=== PATIENT | female | born 1950 | race Caucasian/White ===

== ENCOUNTER 2018-01-22 08:17 | Outpatient (CLI) | payer MEDICARE, BC | END 2018-01-22 08:18 | disposition home or self-care (01) | LOC: BICMAMMO 08:17 | PROVIDERS: ATTEND Family Medicine | DX: Z12.31 Encounter for screening mammogram for malignant neoplasm of breast (principal); Z78.0 Asymptomatic menopausal state; M85.852 Other specified disorders of bone density and structure, left thigh; Z80.3 Family history of malignant neoplasm of breast | CPT/HCPCS: 77063; 77067; 77080 ==

== ENCOUNTER 2018-10-24 10:10 | Outpatient (CLI) | payer MEDICARE, BC ==
--- NOTE | 2018-10-24 10:31 | RAD ---
Lumbar spine: 2 views INDICATIONS: Low back pain COMPARISON: Lateral views 09/25/2018 FINDINGS: An AP projection there is a scoliotic curvature with convexity to the right measured at 26 degrees. Moderate degenerative change with osteophytes. Disc space narrowing. Facet hypertrophy. Posterior ali gnment is preserved in the lateral view. IMPRESSION: Moderate degenerative change with scoliotic curvature to the right.
== END 2018-10-24 10:11 | disposition home or self-care (01) ==
LOC: BICRAD 10:10
PROVIDERS: ATTEND Neurological Surgery
DX: M54.5 Low back pain (principal); M47.816 Spondylosis without myelopathy or radiculopathy, lumbar region; M41.9 Scoliosis, unspecified
CPT/HCPCS: 36415; 72100; 80053; 80061

== ENCOUNTER 2019-04-09 09:32 | Outpatient (CLI) | payer MEDICARE, BC ==
--- NOTE | 2019-04-09 11:10 | MMO ---
Bilateral MAMMO Bilat Screen [facility]. CLINICAL HISTORY: Patient is 68 years old and is seen for screening. The patient has the following family history of breast cancer: paternal aunt. The patient has no personal history of cancer. VIEWS: The views performed were: bilateral craniocaudal with tomosynthesis and bilateral mediolateral oblique with tomosynthesis. FILMS COMPARED: The present examination has been compared to prior imaging studies performed at [facility] on 10/23/2014, 10/26/2015, 12/05/2016 and 01/22/2018. This study has been interpreted with the assistance of computer-aided detection. MAMMOGRAM FINDINGS: The breasts are almost entirely fat. There are no suspicious masses, suspicious calcifications, or new areas of architectural distortion. IMPRESSION: THERE IS NO MAMMOGRAPHIC EVIDENCE OF MALIGNANCY. A ROUTINE FOLLOW-UP MAMMOGRAM IN 1 YEAR IS RECOMMENDED. THE RESULTS OF THIS EXAM WERE SENT TO THE PATIENT. ACR BI-RADS Category 1 - Negative MAMMOGRAPHY NOTE: 1. A negative mammogram report should not delay a biopsy if a dominant of clinically suspicious mass is present. 2. Approximately 10% to 15% of breast cancers are not detected by mammography. 3. Adenosis and dense breasts may obscure an underlying neoplasm. Reported by: AVI HOWELL MD Electonically Signed: [id number]
== END 2019-04-09 09:33 | disposition home or self-care (01) ==
LOC: BICMAMMO 09:32
PROVIDERS: ATTEND Family Medicine
DX: Z12.31 Encounter for screening mammogram for malignant neoplasm of breast (principal); Z80.3 Family history of malignant neoplasm of breast
CPT/HCPCS: 77063; 77067

== ENCOUNTER 2019-10-29 12:30 | Outpatient (CLI) | payer MEDICARE, BC ==
--- NOTE | 2019-10-29 13:04 | RAD ---
Left knee 4 views HISTORY: Fall. Injury. FINDINGS: Joint spaces preserved. No acute fracture, dislocation, or fluid distention of the suprapatellar burs a. IMPRESSION : No abnormalities are demonstrated.
== END 2019-10-29 12:31 | disposition home or self-care (01) ==
LOC: BICRAD 12:30
PROVIDERS: ATTEND Family Medicine
DX: S80.02XA Contusion of left knee, initial encounter (principal)

== ENCOUNTER 2020-04-13 09:32 | Outpatient (CLI) | payer MEDICARE, BC ==
--- NOTE | 2020-04-13 10:04 | MMO ---
Bilateral MAMMO Bilat Screen [facility]. CLINICAL HISTORY: Patient is 69 years old and is seen for screening. The patient has the following family history of breast cancer: paternal aunt. The patient has no personal history of cancer. VIEWS: The views performed were: bilateral craniocaudal with tomosynthesis and bilateral mediolateral oblique with tomosynthesis. FILMS COMPARED: The present examination has been compared to prior imaging studies performed at [facility] on 10/26/2015, 12/05/2016, 01/22/2018 and 04/09/2019. This study has been interpreted with the assistance of computer-aided detection. MAMMOGRAM FINDINGS: The breasts are almost entirely fat. There are no suspicious masses, suspicious calcifications, or new areas of architectural distortion. IMPRESSION: THERE IS NO MAMMOGRAPHIC EVIDENCE OF MALIGNANCY. A ROUTINE FOLLOW-UP MAMMOGRAM IN 1 YEAR IS RECOMMENDED. THE RESULTS OF THIS EXAM WERE SENT TO THE PATIENT. ACR BI-RADS Category 1 - Negative MAMMOGRAPHY NOTE: 1. A negative mammogram report should not delay a biopsy if a dominant of clinically suspicious mass is present. 2. Approximately 10% to 15% of breast cancers are not detected by mammography. 3. Adenosis and dense breasts may obscure an underlying neoplasm. Reported by: DANNA GALINDO MD Electonically Signed: [id number]
--- NOTE | 2020-04-13 11:43 | BD ---
DEXA BONE DENSITY STUDY: Date: 04/13/2020 HISTORY: Postmenopausal. FINDINGS: Lumbar Spine: BMD (g/cm2) L1 0.839 T-Score: -1.4 L2 1.155 T-Score: +1.2 L3 1.082 T-Score: +0.0 L4 1.043 T-Score: -0.2 Total 1.031 T-Score: -0.1 Left Femoral Neck: 0.616 T-Score: -2.1 Total Femur: 0.786 T-Score: -2.3 IMPRESSION: 1. Osteopenia of the left femoral neck. Normal bone mineral density of the lumbar spine. 2. The 10 year fracture risk for a major osteoporotic fracture is 12% and for a hip fracture is 2.4% . These fracture probabilities are calculated for an untreated patient. POS: DESIREE
== END 2020-04-13 09:33 | disposition home or self-care (01) ==
LOC: BICMAMMO 09:32
PROVIDERS: ATTEND Family Medicine
DX: Z12.31 Encounter for screening mammogram for malignant neoplasm of breast (principal); Z13.820 Encounter for screening for osteoporosis; M85.852 Other specified disorders of bone density and structure, left thigh; Z78.0 Asymptomatic menopausal state; Z80.3 Family history of malignant neoplasm of breast
CPT/HCPCS: 77063; 77067; 77080

== ENCOUNTER 2020-08-06 04:44 | Observation (INO) | payer MEDICARE, BC ==
[2020-08-06 06:03] LABS: #Lymphocytes 0.8 thou/uL (1.20-3.40); #Monocytes 0.4 thou/uL (0.11-0.59); %Basophils 0.5 % (0.0-1.0); %Eosinophils 0.5 % (0.0-10.0); %Lymphocytes 9.4 % (21.0-51.0); %Monocytes 4.3 % (0.0-10.0); %Neutrophils 85.3 % (42.0-75.0); Hemoglobin 13.6 g/dL (12.0-16.0); Mean Corpuscular HGB CONC 33.4 g/dL (32.0-36.0); Mean Corpuscular Hemoglobin 31.7 pg (27.0-31.0); Mean Corpuscular Volume 95.2 fL (78.0-98.0); Mean Platelet Volume 6.5 fL (7.4-10.4); Platelet Count 367 thou/uL (130-400); RBC Distribution Width 11.8 % (11.5-14.5); Red Blood Cell (RBC) Count 4.27 mill/uL (4.20-5.40); White Blood Cell (WBC) Count 8.2 thou/uL (4.8-10.8)
[2020-08-06 06:20] LABS: ALT (SGPT) 14 U/L (8-55); AST (SGOT) 18 U/L (5-34); Albumin 3.9 g/dL (3.4-4.8); Alkaline Phosphatase 105 U/L (40-110); Anion Gap 13 mmol/L (10-20); BUN (Urea Nitrogen) 22 mg/dL (9.8-20.1); Bilirubin, Total 0.4 mg/dL (0.2-1.2); Calc. Creatinine Clearance 0 mL/min (70-130); Calcium 8.9 mg/dL (7.8-10.44); Carbon Dioxide 23 mmol/L (23-31); Chloride 103 mmol/L (98-107); Glucose 118 mg/dL (83-110); Potassium 4.4 mmol/L (3.5-5.1); Protein, Total 6.9 g/dL (5.8-8.1); Sodium 135 mmol/L (136-145)
[2020-08-06] MEDS ORDERED: Ondansetron PF 4 MG/2 ML Vial ONE (06:51)
--- NOTE | 2020-08-06 07:43 | CT ---
CT arteriogram chest with IV contrast and 3-D imaging HISTORY: Syncope. Dyspnea. Prior pulmonary emboli. COMPARISON: 01/15/2019. FINDINGS: There is good contrast opacification pulmonary arteries and thoracic aorta. 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 A 0.3 cm nonspecific density associated with the posterior margin of the left pleural fissure at the superior segment left lower lobe is stable. No pneumothorax or pleural fluid. No mediastinal adenopathy. Old right anterior rib fractures. A 0.5 cm cyst within the medial segment left liver lobe is stable. 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 IMPRESSION : No evidence of pulmonary embolus. No acute abnormalities are demonstrated.
[2020-08-06 07:59] LABS: Bacteria/HPF None Seen HPF (None Seen); Bilirubin Negative (Negative); Blood, Urine Negative (Negative); Clarity Clear (Clear); Glucose, Urine (Dipstick) Normal (Negative); Ketone, Urine Negative (Negative); Leukocyte 250 Leu/uL (Negative); Nitrite Negative (Negative); Protein, Urine (Dipstick) Negative (Neg-Trace); Specific Gravity, Urine 1.037 (1.002-1.036); Urobilinogen Normal mg/dL (Less than 2); pH, Urine 7.5 (5.0-9.0)
--- NOTE | 2020-08-06 08:04 | CT ---
Final report by Dr. Eng Emergency after-hours study CT BRAIN NONCONTRAST: DATE: 08/06/2020 HISTORY: 70-year-old female with dizziness FINDINGS: There is no evidence of acute intra-axial or extra-axial hemorrhage. There is no midline shift or any other mass effect. There is no extra-axial fluid collection. There is no evidence of obstructive hydrocephalus. Calvarium is intact. In the right side of the craniocervical junction there is a soft tissue density mass which is slightly hyperdense relative to brain parenchyma, at the right side of the foramen magnum, measuring approximately 1.3 x 0.9 cm, indenting the right side of the junction be tween the medulla and spinal cord. There is a punctate calcification within it. Slightly caudally, at the C1 level, there is another component of the mass that is approximately 1.2 x 1.3 cm. In retros pect, this was probably present on the prior MRI of the brain of 05/25/2018, but it had the appearance of CSF flow artifact, because it did not enhance. It does not appear to be an aneurysm of the right PICA based on the T2-weighted images. Etiology is uncertain. In the upper anterior right parietal bone, there is a 1 cm osteolytic lesion which was present on that previous MRI, and appears to be benign, unchanged. Agree with preliminary report by direct radiology. IMPRESSION: No acute intracranial findings. 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 Etiology unknown. Recommend follow-up with MRI of cervical spine with and without contrast (note to sterile processing technologist: Extend all axial images up to at least mid radha level).
--- NOTE | 2020-08-06 08:05 | RAD ---
EXAM: Portable chest PROVIDED CLINICAL HISTORY: Dizziness COMPARISON: 01/15/2019 FINDINGS: Cardiac and mediastinal silhouette is within normal limits. No focal consolidation, pleural fluid or pneumothorax evident. IMPRESSION: No evidence for an acute cardiopulmonary process.
[2020-08-06] MEDS ORDERED: Ondansetron PF 4 MG/2 ML Vial IVP PRN (09:00)
--- NOTE | 2020-08-06 09:14 | PDOC.HHP ---
Hospitalist JOANA Passed out History of Present Illness: Patient is 70-year-old female with PMH of HLD and history of provoked bilateral PE (after back surgery in 2019) who presents to the ED with CC of syncope. Patient states she got her second dose of Covid-19 vaccine yesterday, she was doing well afterwards except mild ache on her left arm where she got the vaccine, this resolved with Tylenol. When she woke up this morning around 4:00 AM she was very sweaty, she got up and went to the bathroom sat to urinate, then she does not remember what happened afterwards. She states she must have felt dizzy/lightheaded prior to her syncope, however she does not remember. Per report, found her on the toilet, unresponsive and was unconscious for about 3 minutes, and was confused for several minutes afterwards. No seizure-like activities were reported. She had mild BALLARD yesterday, otherwise denies fever, chills, change in vision, chest pain, SOB, N/V, or diarrhea. Allergies/Adverse Reactions: Allergy/AdvReac Type Severity Reaction Status Date / Time codeine Allergy Verified 08/04/16 14:42 penicillin G Allergy Verified 08/04/16 14:42 Sulfa (Sulfonamide Allergy Verified 08/04/16 14:42 Antibiotics) Home Medications: Medication Instructions Recorded Confirmed Type Atorvastatin Calcium 20 mg PO DAILY 08/04/16 08/06/20 History Calcium Carbonate/Vitamin D3 1 each PO DAILY 08/04/16 08/06/20 History [Calcium 500-Vit D3 200 Tablet] Multivitamin [Multivitamins] 1 tablet PO DAILY 08/04/16 08/06/20 History Restasis [Restasis Ophth Drops] 2 drop EA EYE BID 08/04/16 08/06/20 History Dextran 70/Hypromellose 1 - 2 drop EA EYE ASDIR PRN 01/16/19 08/06/20 History [Artificial Tears Eye Drops] Acetaminophen [Tylenol Regular 650 mg PO Q4H PRN tab 01/18/19 08/06/20 Rx Strength] Acyclovir 400 mg PO DAILY 08/06/20 08/06/20 History DULoxetine [Cymbalta] 60 mg PO DAILY 08/06/20 08/06/20 History Gabapentin 400 mg PO HS 08/06/20 08/06/20 History Meloxicam 15 mg PO DAILY 08/06/20 08/06/20 History SUMAtriptan Succinate [Sumatriptan 50 mg PO DAILY PRN 08/06/20 08/06/20 History Succinate] diphenhydrAMINE [Benadryl] 25 mg PO HS 08/06/20 08/06/20 History Past History: PMHx: HLD and history of provoked bilateral PE (after back surgery in 2019) PShx: L4-L5 and L5-S1 surgery, tubal ligation, knee arthroscopy Fhx: Father: CVA Mother: Cancer Social Hx: drinks alcohol occasionally. Never smoker. Denies drug use. Hospitalist HPI ROS Constitutional: denies: fever, chills Eyes: denies: vision change ENT: denies: throat pain Respiratory: denies: shortness of breath Cardiovascular: denies: chest pain Gastrointestinal: denies: nausea, vomiting, abdominal pain Genitourinary: reports: dysuria. denies: frequency Musculoskeletal: denies: arm pain Skin: denies: rash Other: Negative for BALLARD Hospitalist Exam General Appearance: NAD, awake alert Eye: PERRL ENT: moist mucosa Neck: supple, no JVD Heart: RRR, no murmur Respiratory: CTAB, no wheezes, no tachypnea Gastrointestinal: soft, non-tender, non-distended, normal bowel sounds Extremities: no edema Neurological: cranial nerve grossly intact, normal sensation to touch, no weakness Musculoskeletal: normal strength Psychiatric: A&O x 3 Hospitalist Results Result Diagrams: 08/07/20 07:26 08/07/20 07:26 Lab results: Laboratory Last Values WBC 8.2 thou/uL (4.8-10.8) 08/06/20 05:50 RBC 4.27 mill/uL (4.20-5.40) 08/06/20 05:50 Hgb 13.6 g/dL (12.0-16.0) 08/06/20 05:50 Hct 40.7 % (36.0-47.0) 08/06/20 05:50 MCV 95.2 fL (78.0-98.0) 08/06/20 05:50 MCH 31.7 pg (27.0-31.0) H 08/06/20 05:50 MCHC 33.4 g/dL (32.0-36.0) 08/06/20 05:50 RDW 11.8 % (11.5-14.5) 08/06/20 05:50 Plt Count 367 thou/uL (130-400) 08/06/20 05:50 MPV 6.5 fL (7.4-10.4) L 08/06/20 05:50 Neutrophils % 85.3 % (42.0-75.0) H 08/06/20 05:50 Lymphocytes % 9.4 % (21.0-51.0) L 08/06/20 05:50 Monocytes % 4.3 % (0.0-10.0) 08/06/20 05:50 Eosinophils % 0.5 % (0.0-10.0) 08/06/20 05:50 Basophils % 0.5 % (0.0-1.0) 08/06/20 05:50 Neutrophils # 7.0 thou/uL (1.40-6.50) H 08/06/20 05:50 Lymphocytes # 0.8 thou/uL (1.20-3.40) L 08/06/20 05:50 Monocytes # 0.4 thou/uL (0.11-0.59) 08/06/20 05:50 Eosinophils # 0.0 thou/uL (0.0-0.7) 08/06/20 05:50 Basophils # 0.0 thou/uL (0.0-0.2) 08/06/20 05:50 Sodium 135 mmol/L (136-145) L 08/06/20 05:50 Potassium 4.4 mmol/L (3.5-5.1) 08/06/20 05:50 Chloride 103 mmol/L (98-107) 08/06/20 05:50 Carbon Dioxide 23 mmol/L (23-31) 08/06/20 05:50 Anion Gap 13 mmol/L (10-20) 08/06/20 05:50 BUN 22 mg/dL (9.8-20.1) H 08/06/20 05:50 Creatinine 1.04 mg/dL (0.6-1.1) 08/06/20 05:50 Estimated GFR (MDRD) 52 08/06/20 05:50 Glucose 118 mg/dL (83-110) H 08/06/20 05:50 Calcium 8.9 mg/dL (7.8-10.44) 08/06/20 05:50 Total Bilirubin 0.4 mg/dL (0.2-1.2) 08/06/20 05:50 AST 18 U/L (5-34) 08/06/20 05:50 ALT 14 U/L (8-55) 08/06/20 05:50 Alkaline Phosphatase 105 U/L (40-110) 08/06/20 05:50 Troponin I Less than 0.010 ng/mL (< 0.028) 08/06/20 05:50 Serum Total Protein 6.9 g/dL (5.8-8.1) 08/06/20 05:50 Albumin 3.9 g/dL (3.4-4.8) 08/06/20 05:50 Globulin 3.0 g/dL (2.4-3.5) 08/06/20 05:50 Albumin/Globulin Ratio 1.3 g/dL (1.2-2.2) 08/06/20 05:50 Urine Color Light-Yellow (Yellow) 08/06/20 07:05 Urine Clarity Clear (Clear) 08/06/20 07:05 Urine pH 7.5 (5.0-9.0) 08/06/20 07:05 Ur Specific [place] 1.037 (1.002-1.036) H 08/06/20 07:05 Urine Protein Negative mg/dL (Neg-Trace) 08/06/20 07:05 Urine Glucose (UA) Normal mg/dL (Negative) 08/06/20 07:05 Urine Ketones Negative mg/dL (Negative) 08/06/20 07:05 Urine Blood Negative (Negative) 08/06/20 07:05 Urine Nitrite Negative (Negative) 08/06/20 07:05 Urine Bilirubin Negative (Negative) 08/06/20 07:05 Urine Urobilinogen Normal mg/dL (Less than 2) 08/06/20 07:05 Ur Leukocyte Esterase 250 Simeon/uL (Negative) A 08/06/20 07:05 Urine RBC 4-6 HPF (0-3) A 08/06/20 07:05 Urine WBC 4-6 HPF (0-3) A 08/06/20 07:05 Ur Squamous Epith Cells 4-6 HPF (0-3) A 08/06/20 07:05 Urine Bacteria None Seen HPF (None Seen) 08/06/20 07:05 Hyaline Casts 0-3 LPF (0-3) 08/06/20 07:05 CT scan - chest Additional Comments: IMPRESSION: No acute intracranial findings. 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 Etiology unknown. Recommend follow-up with MRI of cervical spine with and without contrast (note to systems technologist: Extend all axial images up to at least mid radha level). Hospitalist H&P A/P (1) Syncope Code(s): R55 - SYNCOPE AND COLLAPSE Status: Acute Assessment and Plan: Likely from orthostatic hypotension from dehydration. Initial BP in the ED, 112/58, later 98/45. Lab showed elevated BUN, UA showed elevated specific gravity. EKG showed NSR. CTA chest showed no PE. CT head showed exramedullary intradural mass within the right side of the spinal canal and foramen mangnum, f/u MRI of the cervical spine was recommended, it showed no acute intracranial abnormalities. Plan: -Telemetry -Orthostatic vitals -Echo -MRI of Cervical spin w/wo contrast -IV fluid (2) HLD (hyperlipidemia) Code(s): E78.5 - HYPERLIPIDEMIA, UNSPECIFIED Status: Chronic Assessment and Plan: Plan: -cont home med
[2020-08-06 11:09] VITALS: BMI 29.7
[2020-08-06] MEDS: Sodium Chloride 0.9% 1,000 ML IV SCH ×2 (12:03→23:05)
[2020-08-06] MEDS: Acetaminophen 325 MG TAB PO PRN ×2 (12:05→20:10)
[2020-08-06] MEDS ORDERED: Iopamidol 370 76% 100 ML VIAL ONE (13:47)
--- NOTE | 2020-08-06 13:56 | MRI ---
MRI cervical spine with and without contrast: 08/06/2020 HISTORY: 70-year-old female with mass found in upper spinal canal and posterior fossa on CT. COMPARISON: Brain MRI of 05/25/2018. No prior MRI of cervical spine. FINDINGS: There is an intradural, extra medullary mass in the right side of the foramen magnum and upper cervic al spinal canal, measuring approximately 3.5 cm craniocaudal. Oblique short axis measurements are approximately 1.3 x 0.7 cm. Superior edges approximately 1.2 cm superior to the foramen magnum. Infer ior edge is at the level of the base of the odontoid process. It is isointense relative to brain parenchyma on T1 WI, does not enhance, and almost isointense to CSF on T2 WI, such that it is highly inconspicuous. Were it not for the intermediate density on the noncontrast CT, this could easily be overlooked on MRI. The prior brain MRI did not include the most inferior portion of the mass. It is b est visualized on the prior FLAIR sequence of the brain MRI rather than on any of the current cervical spine MRI images. It was probably dismissed as CSF flow artifact on that prior brain MRI, wh ich would've been a very reasonable assumption. Based on the apples to oranges comparison between the axial current images and those of the previous MRI, this probably has not significant changed. Th e right vertebral artery travels along its outer surface. It is not narrowed. The mass is not an aneurysm of the right PICA. There was no restricted diffusion on DWI on the prior MRI, and therefore it is not an epidermoid. It does not appear to be a benign or malignant neoplasm because it does not enhance. It mildly chronically displaces the medulla and upper cervical spinal cord. Increased si gnal intensity on FLAIR, and isodensity relative to adjacent spinal cord and brain on CT makes this is consistent with arachnoid cyst. There is reversal of curvature. High-grade disc space narrowing at C4-5 and C5-6. No high-grade centr al spinal canal stenosis at any level. Uncinate process osteophytes encroach upon bilateral neural foramina at C4-5 and C5-6. Neural foraminal stenosis is moderate to severe on the left at C4-5, sever e on the left at C5-6, and moderate on the right at C5-6. Vertebral body heights are maintained. Bone marrow signal is normal. Cervical spinal cord is normal in size and signal with no syrinx or abn ormal enhancement. No enhancing masses in the neural foramina or perivertebral spaces. Multilevel mild to moderate facet DJD bilaterally. IMPRESSION: 1.) Right-sided extra medullary, intradural nonenhancing mass in the right side of the upper cervical spinal canal, protruding slightly superior to the foramen magnum. Etiology unknown. Apparently benign. 2) cervical spondylosis with high-grade left-sided neural foraminal stenosis at C4-5 and C5-6.
[2020-08-06] MEDS ORDERED: Magnevist 469MG/ML 20 ML VIAL ONE (14:05)
[2020-08-06] MEDS ORDERED: Atorvastatin Calcium 20 MG TAB PO SCH (21:00)
[2020-08-06 22:38] LABS: SARS-CoV-2 PCR by NAA Not Detected (NotDetected)
[2020-08-07 07:54] LABS: #Eosinphils 0.3 thou/uL (0.0-0.7); #Lymphocytes 1.6 thou/uL (1.20-3.40); #Monocytes 0.6 thou/uL (0.11-0.59); #Neutrophils 2.2 thou/uL (1.40-6.50); %Basophils 0.7 % (0.0-1.0); %Eosinophils 5.8 % (0.0-10.0); %Monocytes 13.4 % (0.0-10.0); %Neutrophils 47.2 % (42.0-75.0); Hemoglobin 13.7 g/dL (12.0-16.0); Mean Corpuscular HGB CONC 33.5 g/dL (32.0-36.0); Mean Corpuscular Hemoglobin 32.7 pg (27.0-31.0); Mean Corpuscular Volume 97.6 fL (78.0-98.0); Mean Platelet Volume 6.8 fL (7.4-10.4); Platelet Count 367 thou/uL (130-400); RBC Distribution Width 11.8 % (11.5-14.5); Red Blood Cell (RBC) Count 4.21 mill/uL (4.20-5.40); White Blood Cell (WBC) Count 4.7 thou/uL (4.8-10.8)
[2020-08-07 08:12] LABS: Anion Gap 13 mmol/L (10-20); BUN (Urea Nitrogen) 14 mg/dL (9.8-20.1); Calc. Creatinine Clearance 79 mL/min (70-130); Carbon Dioxide 26 mmol/L (23-31); Chloride 107 mmol/L (98-107); Glucose 104 mg/dL (83-110); Potassium 4.5 mmol/L (3.5-5.1); Sodium 141 mmol/L (136-145)
[2020-08-07] MEDS: Acetaminophen 325 MG TAB PO PRN (11:08)
[2020-08-07] MEDS: Sodium Chloride 0.9% 1,000 ML IV SCH (14:26)
[2020-08-07 16:30] VITALS: BP 143/67; TEMP 97.9
--- NOTE | 2020-08-07 17:06 | PDOC.DS.DS ---
Provider Date of Admission: 08/06/20 08:07 Date of Discharge: 08/07/20 Admitting Provider: Zee Nava MD Consultations: Cardiology Primary Care Physician: Kalyan Culver, DO Course Hospital Course: Patient is 70-year-old female with PMH of HLD and history of provoked bilateral PE (after back surgery in 2019) who presents to the ED with CC of syncope. Patient took her second dose of COVID-19 vaccine a day prior to her admission, and she was sweaty the night before. found her unresponsive sitting on a toilet. Work up showed positive orthostatic vitals. Labs showed elevated BUN, UA showed elevated specific gravity. Initial EKG showed NSR. CTA chest showed no PE. CT head showed extramedullary intradural mass within the right side of the spinal canal and foramina magnum. F/u MRI cervical spine w contrast was recommended and this showed right-sided extra medullary, intradural nonenhancing mass in the right side of the upper cervical spinal canal, protruding slightly superior to the foramen magnum, etiology unknown but appears benign. Patient was informed to follow-up with neurosurgery outpatient. Echo showed EF: 60-65%. Tele overnight showed 1st degree AV block with HR in the 70-80's. Cardiology was consulted and states patient is okay to be discharged. Her syncope is likely from orthosatic hypotension, which improved with IV hydration. 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 Resuscitation Status: 08/06/20 09:00 Resuscitation Status Routine Resuscitation Status: FULL: Full Resuscitation Discussed with: patient Lab Results: 08/07/20 07:26 08/07/20 07:26 Abnormal Lab Results - Last 48 hrs 08/06/20 05:50: Sodium 135 L, BUN 22 H 08/06/20 05:50: MCH 31.7 H, MPV 6.5 L, Neutrophils % 85.3 H, Lymphocytes % 9.4 L, Neutrophils # 7.0 H, Lymphocytes # 0.8 L 08/06/20 07:05: Ur Specific [place] 1.037 H, Ur Leukocyte Esterase 250 A, Urine RBC 4-6 A, Urine WBC 4-6 A, Ur Squamous Epith Cells 4-6 A 08/07/20 07:26: WBC 4.7 L, MCH 32.7 H, MPV 6.8 L, Monocytes % 13.4 H, Monocytes # 0.6 H Vitals: Vital Signs (12 hours) Temp Pulse Resp BP BP BP BP 08/07/20 16:21 143/67 H 08/07/20 16:18 143/57 H 08/07/20 16:15 97.9 F 141/60 H 08/07/20 12:00 98.9 F 83 16 120/57 L 08/07/20 08:21 104/48 L 08/07/20 08:18 86 127/67 08/07/20 08:15 81 85/48 L 08/07/20 07:00 98.1 F 72 18 128/56 L 08/07/20 04:55 Pulse Ox 08/07/20 16:21 08/07/20 16:18 08/07/20 16:15 98 08/07/20 12:00 96 08/07/20 08:21 08/07/20 08:18 08/07/20 08:15 08/07/20 07:00 94 L 08/07/20 04:55 95 Weight Weight 179 lb Physical Exam: The patient was seen and examined on the day of discharge. Problem (1) Syncope Code(s): R55 - SYNCOPE AND COLLAPSE Status: Acute (2) HLD (hyperlipidemia) Code(s): E78.5 - HYPERLIPIDEMIA, UNSPECIFIED Status: Chronic Plan Home Medications: Medication Instructions Recorded Confirmed Type Atorvastatin Calcium 20 mg PO DAILY 08/04/16 08/06/20 History Calcium Carbonate/Vitamin D3 1 each PO DAILY 08/04/16 08/06/20 History [Calcium 500-Vit D3 200 Tablet] Multivitamin [Multivitamins] 1 tablet PO DAILY 08/04/16 08/06/20 History Restasis [Restasis Ophth Drops] 2 drop EA EYE BID 08/04/16 08/06/20 History Dextran 70/Hypromellose 1 - 2 drop EA EYE ASDIR PRN 01/16/19 08/06/20 History [Artificial Tears Eye Drops] Acetaminophen [Tylenol Regular 650 mg PO Q4H PRN tab 01/18/19 08/06/20 Rx Strength] Acyclovir 400 mg PO DAILY 08/06/20 08/06/20 History DULoxetine [Cymbalta] 60 mg PO DAILY 08/06/20 08/06/20 History Gabapentin 400 mg PO HS 08/06/20 08/06/20 History Meloxicam 15 mg PO DAILY 08/06/20 08/06/20 History SUMAtriptan Succinate [Sumatriptan 50 mg PO DAILY PRN 08/06/20 08/06/20 History Succinate] Atorvastatin Calcium [Lipitor] 20 mg PO HS tab 08/07/20 Rx Allergies: codeine Allergy (Verified 08/04/16 14:42) penicillin G Allergy (Verified 08/04/16 14:42) Sulfa (Sulfonamide Antibiotics) Allergy (Verified 08/04/16 14:42) Activity:: Activity as Tolerated Nourishment:: Heart Healthy Diet Referrals: Star Jimenes MD [Active] - 3-4 Weeks Kalyan Culver DO [Primary Care Provider] - 7 Days (ANDREWS Healy, RN will be calling you approximately 72 hours after discharge to check on you. If you should need anything with regards to your healthcare prior to that time, please contact her directly at (Monday - Monday 8:00 a.m. to 5:00 p.m.)) Disposition: HOME
--- NOTE | 2020-08-07 17:23 | CON ---
DATE OF CONSULTATION: 08/07/2020 REASON FOR CONSULTATION: Syncope. HISTORY OF PRESENT ILLNESS: Ms. 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 She had her second COVID-19 vaccine dose the day before the event. She was doing very well except she had a mild ache on her left arm. She took some Tylenol No. 4. She went to bed. At about 4 a.m., she felt very sweaty, stood up and went to the bathroom to urinate, and suddenly lost consciousness and her heard the thud and went to her aide and found her unresponsive on the floor. This lasted for about 2 minutes and she was confused several minutes afterwards, but no seizure-like activity. Mild headache yesterday. She currently denies any chest pain, tightness, or pressure. She was orthostatic when she came in and she has been getting IV fluids, and she feels a whole lot better today. She has never had any problems in the past with her heart. PAST MEDICAL HISTORY: 1. Hyperlipidemia. 2. 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 PAST SURGICAL HISTORY: 1. Lumbar spine surgery. 2. Tubal ligation. 3. Arthroscopy of the knee. FAMILY HISTORY: Noncontributory. SOCIAL HISTORY: Social alcohol use. No tobacco or drugs. OUTPATIENT MEDICATIONS: 1. Atorvastatin 20 mg a day. 2. Calcium and vitamin D. 3. Multivitamins. 4. Restasis ophthalmic drops. 5. Artificial eye drops. 6. Tylenol p.r.n. 7. Acyclovir 400 mg a day. 8. Cymbalta 60 mg a day. 9. Gabapentin 400 mg at bedtime. 10. Sumatriptan 50 mg a day. 11. Diphenhydramine p.r.n. REVIEW OF SYSTEMS: A 12-point review of systems was done and was all negative except as stated in the history of present illness. ALLERGIES: 1. CODEINE. 2. PENICILLIN. 3. SULFA DRUGS. PHYSICAL EXAMINATION: VITAL SIGNS: Temperature 98.9, pulse 83, respiratory rate 16, saturating 96% on room air, blood pressure 120/57; however, she went from 120 down to 85 when standing up. GENERAL: Awake, alert, oriented x3, in no distress. HEENT: Normocephalic, atraumatic. NECK: Supple. LUNGS: Clear. CARDIOVASCULAR: S1 and S2. No S3 or S4. No murmurs. No rubs. ABDOMEN: Soft. Positive bowel sounds. EXTREMITIES: No edema. SKIN: Warm and dry. LABORATORY DATA: Laboratory work was reviewed. CBC with a white count of 8, hemoglobin 13, hematocrit 40, and platelet count of 267. Chemistries are unremarkable. Troponin was negative x1. UA was unremarkable. COVID-19 PCR was not detected. EKG was reviewed. CT of the chest showed no evidence of pulmonary embolism and no acute abnormalities. CT of the brain showed no acute intracranial findings. 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 I would recommend followup MRI. Echocardiogram was reviewed. She has a normal LV function and normal diastolic function. Her aortic valve was sclerotic with mild aortic insufficiency. ASSESSMENT: 1. Syncope. 2. Orthostatic hypotension. 3. Mild aortic insufficiency. PLAN: 1. Most likely, her episode was related to orthostatic hypotension. She is much better after IV fluids. 2. From the cardiac perspective, she may be discharged home at any point. 3. She will follow up in the office in about 1 or 2 weeks and we will plan on doing a stress test at that point to evaluate for ischemia. 4. We will also follow up for aortic insufficiency long-term with serial echocardiograms. Thank you for letting us participate in the care of this patient. We will sign off. Please call with any questions. Job ID: [id number]
== END 2020-08-07 17:25 | disposition home or self-care (01) ==
LOC: ERS 04:44 → 3SE 08:07
PROVIDERS: ADMIT Internal Medicine; ATTEND Internal Medicine
DX: I95.1 Orthostatic hypotension (principal); E78.5 Hyperlipidemia, unspecified; I35.1 Nonrheumatic aortic (valve) insufficiency; G95.89 Other specified diseases of spinal cord; M47.812 Spondylosis without myelopathy or radiculopathy, cervical region; M48.02 Spinal stenosis, cervical region; I72.8 Aneurysm of other specified arteries; Z86.711 Personal history of pulmonary embolism; Z79.899 Other long term (current) drug therapy; Z88.0 Allergy status to penicillin; Z88.2 Allergy status to sulfonamides; Z88.5 Allergy status to narcotic agent; Z20.822 Contact with and (suspected) exposure to COVID-19
CPT/HCPCS: 70450; 71045; 71275; 72156; 80048; 80053; 84484; 85025 ×2; 93005; 93306; 96374; 99285; U0003; U0005; 36415; 81003; 81015; 87635; A9579; G0378; J2405; Q9967

== ENCOUNTER 2020-08-28 15:02 | Emergency (ER) | payer MEDICARE, BC ==
[~2020-08-28 15:02] MED LIST: Iopamidol-370 76% 500 ML 1 ML ONE
[2020-08-28] MEDS ORDERED: Ondansetron PF 4 MG/2 ML Vial ONE (16:24)
[2020-08-28] MEDS ORDERED: Morphine 4 MG/ML VIAL ONE (16:24)
[2020-08-28 16:26] LABS: #Eosinphils 0.2 thou/uL (0.0-0.7); #Lymphocytes 2.1 thou/uL (1.20-3.40); #Monocytes 1.1 thou/uL (0.11-0.59); #Neutrophils 9.9 thou/uL (1.40-6.50); %Basophils 0.2 % (0.0-1.0); %Eosinophils 1.3 % (0.0-10.0); %Lymphocytes 16.1 % (21.0-51.0); %Monocytes 8.1 % (0.0-10.0); %Neutrophils 74.3 % (42.0-75.0); Hemoglobin 12.9 g/dL (12.0-16.0); Mean Corpuscular Hemoglobin 32.7 pg (27.0-31.0); Mean Corpuscular Volume 96.2 fL (78.0-98.0); Mean Platelet Volume 6.5 fL (7.4-10.4); Platelet Count 412 thou/uL (130-400); RBC Distribution Width 11.6 % (11.5-14.5); Red Blood Cell (RBC) Count 3.94 mill/uL (4.20-5.40); White Blood Cell (WBC) Count 13.3 thou/uL (4.8-10.8)
[2020-08-28 16:49] LABS: ALT (SGPT) 10 U/L (8-55); AST (SGOT) 16 U/L (5-34); Albumin 3.9 g/dL (3.4-4.8); Alkaline Phosphatase 101 U/L (40-110); Anion Gap 14 mmol/L (10-20); BUN (Urea Nitrogen) 17 mg/dL (9.8-20.1); Bilirubin, Total 0.4 mg/dL (0.2-1.2); CK (CPK) 57 U/L (29-168); Calc. Creatinine Clearance 0 mL/min (70-130); Calcium 8.7 mg/dL (7.8-10.44); Carbon Dioxide 26 mmol/L (23-31); Chloride 102 mmol/L (98-107); Glucose 108 mg/dL (83-110); Lipase 14 U/L (8-78); Potassium 3.8 mmol/L (3.5-5.1); Protein, Total 6.9 g/dL (5.8-8.1); Sodium 138 mmol/L (136-145)
== END 2020-08-28 17:33 | disposition home or self-care (01) ==
LOC: ERS 15:02
DX: K57.32 Diverticulitis of large intestine without perforation or abscess without bleeding (principal); E78.5 Hyperlipidemia, unspecified; E78.00 Pure hypercholesterolemia, unspecified; Z79.899 Other long term (current) drug therapy
CPT/HCPCS: 36415; 74177; 80053; 82550; 83690; 85025; 96374; J2270; J2405; Q9967

== ENCOUNTER 2021-04-14 09:44 | Outpatient (CLI) | payer MEDICARE, BC | END 2021-04-14 09:45 | disposition home or self-care (01) | LOC: BICMAMMO 09:44 | PROVIDERS: ATTEND Family Medicine | DX: Z12.31 Encounter for screening mammogram for malignant neoplasm of breast (principal); Z80.3 Family history of malignant neoplasm of breast | CPT/HCPCS: 77063; 77067 ==

== ENCOUNTER 2022-01-12 09:52 | Outpatient (CLI) | payer MEDICARE, BC ==
[2022-01-12] MEDS ORDERED: Magnevist 469MG/ML 20 ML VIAL ONE (14:28)
== END 2022-01-12 09:53 | disposition home or self-care (01) ==
LOC: MRI 09:52 → TBSIIMAG 09:53
PROVIDERS: ATTEND Family Medicine
DX: M43.16 Spondylolisthesis, lumbar region (principal); M96.1 Postlaminectomy syndrome, not elsewhere classified; M46.1 Sacroiliitis, not elsewhere classified; M79.2 Neuralgia and neuritis, unspecified; M54.50 Low back pain, unspecified; M47.816 Spondylosis without myelopathy or radiculopathy, lumbar region; M47.817 Spondylosis without myelopathy or radiculopathy, lumbosacral region
CPT/HCPCS: 72158; 82565; A9579

== ENCOUNTER 2023-04-29 07:47 | Emergency (ER) | payer MEDICARE, BC ==
[2023-04-29 08:27] LABS: #Basophils 0.1 thou/uL (0.0-0.2); #Eosinphils 0.2 thou/uL (0.0-0.7); #Monocytes 0.5 thou/uL (0.11-0.59); #Neutrophils 2.5 thou/uL (1.40-6.50); %Basophils 0.9 % (0.0-1.0); %Eosinophils 3.8 % (0.0-10.0); %Lymphocytes 39.3 % (21.0-51.0); %Monocytes 9.3 % (0.0-10.0); %Neutrophils 46.3 % (42.0-75.0); Hematocrit 36.7 % (36.0-47.0); Hemoglobin 12.7 g/dL (12.0-16.0); Mean Corpuscular HGB CONC 34.6 g/dL (32.0-36.0); Mean Corpuscular Hemoglobin 32.7 pg (27.0-31.0); Mean Corpuscular Volume 94.6 fl (78.0-98.0); Mean Platelet Volume 9.1 fL (7.4-10.4); Platelet Count 376 10x3/uL (130-400); RBC Distribution Width 13.2 % (11.5-14.5); Red Blood Cell (RBC) Count 3.88 mill/uL (4.20-5.40); White Blood Cell (WBC) Count 5.5 10x3/uL (4.8-10.8)
[2023-04-29 08:53] LABS: Troponin I Less than 0.010 ng/mL (< 0.028)
[2023-04-29 08:57] LABS: ALT (SGPT) 18 U/L (8-55); AST (SGOT) 28 U/L (5-34); Alkaline Phosphatase 81 U/L (40-110); Anion Gap 15 mmol/L (10-20); BUN (Urea Nitrogen) 18 mg/dL (9.8-20.1); Bilirubin, Total 0.3 mg/dL (0.2-1.2); Calc. Creatinine Clearance 0 mL/min (70-130); Calcium 9.3 mg/dL (7.8-10.44); Carbon Dioxide 24 mmol/L (23-31); Chloride 105 mmol/L (98-107); Estimated GFR 60; Globulin 3.1 g/dL (2.4-3.5); Glucose 96 mg/dL (83-110); Lipase 31 U/L (8-78); Potassium 4.8 mmol/L (3.5-5.1); Protein, Total 7.1 g/dL (5.8-8.1); Sodium 139 mmol/L (136-145)
[2023-04-29 10:10] LABS: SARS-CoV-2 NAA Rapid Test Not Detected (NotDetected)
[2023-04-29 10:57] LABS: Troponin I Less than 0.010 ng/mL (< 0.028)
== END 2023-04-29 11:07 | disposition home or self-care (01) ==
LOC: ERS 07:47
DX: R07.89 Other chest pain (principal); I95.9 Hypotension, unspecified; Z20.822 Contact with and (suspected) exposure to COVID-19
CPT/HCPCS: 0240U; 71045; 80053; 83690; 83880; 84484 ×2; 85025; 99285; 36415

== ENCOUNTER 2023-05-10 14:18 | Outpatient (CLI) | payer MEDICARE, BC | END 2023-05-10 14:19 | disposition home or self-care (01) | LOC: BICMAMMO 14:18 | PROVIDERS: ATTEND Family Medicine | DX: Z12.31 Encounter for screening mammogram for malignant neoplasm of breast (principal); Z13.820 Encounter for screening for osteoporosis; M85.89 Other specified disorders of bone density and structure, multiple sites; Z80.3 Family history of malignant neoplasm of breast | CPT/HCPCS: 77063; 77067; 77080 ==

== ENCOUNTER 2023-08-03 13:47 | Outpatient (CLI) | payer MEDICARE, BC | END 2023-08-03 13:48 | disposition home or self-care (01) | LOC: BICRAD 13:47 | PROVIDERS: ATTEND Family Medicine | DX: M25.551 Pain in right hip (principal); M25.511 Pain in right shoulder; M16.11 Unilateral primary osteoarthritis, right hip ==

== ENCOUNTER 2024-07-08 09:10 | Outpatient (CLI) | payer MEDICARE, BC | END 2024-07-08 09:11 | disposition home or self-care (01) | LOC: BICMRI 09:10 | PROVIDERS: ATTEND Family Medicine Sports Medicine | DX: M47.26 Other spondylosis with radiculopathy, lumbar region (principal); M47.815 Spondylosis without myelopathy or radiculopathy, thoracolumbar region; M47.817 Spondylosis without myelopathy or radiculopathy, lumbosacral region; M41.9 Scoliosis, unspecified | CPT/HCPCS: 72148 ==